=== PATIENT | female | born 1960 | race American Indian/Alaskan Native ===

== ENCOUNTER 2018-12-26 05:24 | Observation (INO) | payer MEDICAID ==
[2018-12-26] MEDS ORDERED: ASPIRIN PO ONE (05:41)
[2018-12-26 06:10] LABS: Eosinophils % (Auto) 0.2 % (0.0-4.3); Hematocrit 35.5 % (30.3-42.9); Lymphocytes # (Auto) 1.5 K/mm3 (1.2-5.4); Lymphocytes % (Auto) 30.8 % (13.4-35.0); Mean Corpuscular HGB Conc 34 % (30-34); Mean Corpuscular Volume 87 fl (79-97); Monocytes # (Auto) 0.4 K/mm3 (0.0-0.8); Platelet Count 381 K/mm3 (140-440); Red Blood Count 4.09 M/mm3 (3.65-5.03)
[2018-12-26 06:23] LABS: BUN/Creatinine Ratio 19; Blood Urea Nitrogen 15 mg/dL (7-17); Calcium 9.7 mg/dL (8.4-10.2); Hemolysis Index 21
--- NOTE | 2018-12-26 06:23 | XRay Report ---
CHEST 1 VIEW INDICATION / CLINICAL INFORMATION: Chest Pain. COMPARISON: None available. FINDINGS: SUPPORT DEVICES: None. HEART / MEDIASTINUM: No significant abnormality. LUNGS / PLEURA: No significant pulmonary or pleural abnormality. No pneumothorax. ADDITIONAL FINDINGS: No significant additional findings. IMPRESSION: 1. No acute findings. Signer Name: Ibrahima Daniel MD Signed: 12/26/2018 6:19 AM Workstation Name: [id number]
[2018-12-26] MEDS ORDERED: ASPIRIN ONE (07:59)
[2018-12-26] MEDS ORDERED: NITROSTAT SL PRN (08:04)
[2018-12-26] MEDS ORDERED: NITRO-BID 2% TP ONE (08:05)
[2018-12-26] MEDS ORDERED: MORPHINE IV ONE (08:05)
[2018-12-26] MEDS ORDERED: SODIUM CHLORIDE FLUSH SYRINGE 10 ML IV PRN ×2 (08:16→08:38)
[2018-12-26] MEDS ORDERED: TYLENOL PO PRN ×2 (08:16→08:39)
[2018-12-26] MEDS ORDERED: ZOFRAN IV PRN (08:16)
[2018-12-26] MEDS ORDERED: D50W (25GM) Syringe IV PRN (08:41)
--- NOTE | 2018-12-26 08:42 | History and Physical Report ---
History of Present Illness Date of examination: 12/26/18 Date of admission: 12/27/18 Chief complaint: Chest pain History of present illness: Pt is a 58-year-old female with PMHx of CVA, HTN, DM type2, CKD Colon Ca per pt currently undergoing chemotherapy, presents with complaints of chest pain, generalized malesie, nausea with no associated vomiting. Per patient she started having chest pain this am and had started chemotherapy 12/23/18. The pain is intermittent, pressure like sensation, 4/10 with no associated radiation or shortness of breath. She was such a poor historian and could not provide any further information or accurate list of her medications. I spoke to the daughter over the phone who wanted me to call her Oncologist to report that she may be having reaction to the chemotherapy medications. She could not inform me of the name of the chemotherapy agent. Review of last admission showed that the patient could not complete a stress test and was recommended to have cardiac cath but opted to have it done outpt. Past History Past Medical History: cancer, diabetes, hyperthyroidism, hypertension, hyperlipidemia Past Surgical History: bowel surgery Social history: no significant social history Family history: diabetes Medications and Allergies Allergies Allergy/AdvReac Type Severity Reaction Status Date / Time No Known Allergies Allergy Unverified 12/26/18 05:40 Home Medications Medication Instructions Recorded Confirmed Last Taken Type Aspirin 81 mg PO DAILY 12/26/18 12/26/18 Unknown History AtorvaSTATin 40 mg PO DAILY 12/26/18 12/26/18 Unknown History Capecitabine [Xeloda] 500 mg PO BID 12/26/18 12/26/18 12/26/18 21:00 History Gabapentin 300 mg PO BID 12/26/18 12/26/18 Unknown History NovoLIN 70/30 10 units SUB-Q HS 12/26/18 12/26/18 Unknown History NovoLIN 70/30 15 unit SUB-Q DAILY 12/26/18 12/26/18 Unknown History Protonix 40 mg PO DAILY 12/26/18 12/26/18 Unknown History amLODIPine 5 mg PO DAILY 12/26/18 12/26/18 Unknown History metFORMIN 750 mg PO BID 12/26/18 12/26/18 Unknown History Active Meds: Active Medications Acetaminophen (Tylenol) 650 mg PO Q4H PRN PRN Reason: Pain MILD(1-3)/Fever >100.5/ANDRE Nitroglycerin (Nitrostat) 0.4 mg SL .Q5MIN PRN PRN Reason: Chest Pain Ondansetron HCl (Zofran) 4 mg IV Q8H PRN PRN Reason: Nausea And Vomiting Sodium Chloride (Sodium Chloride Flush Syringe 10 Ml) 10 ml IV BID [place]IA Sodium Chloride (Sodium Chloride Flush Syringe 10 Ml) 10 ml IV PRN PRN PRN Reason: LINE FLUSH Review of Systems All systems: negative Constitutional: anorexia, fatigue, weakness, malaise, lethargy, no weight loss, no weight gain, no fever, no chills, no sweats, no night sweats Cardiovascular: chest pain, no orthopnea, no palpitations, no rapid/irregular heart beat, no edema, no syncope, no lightheadedness, no shortness of breath, no dyspnea on exertion, no paroxysmal nocturnal dyspnea, no phlebitis, no leg edema Respiratory: no cough, no excessive sputum, no hemoptysis, no dyspnea on exertion, no pleurisy Gastrointestinal: nausea, no abdominal pain, no vomiting, no diarrhea, no const ipation, no change in bowel habits, no loss of appetite, no early satiety Musculoskeletal: no neck stiffness, no shooting arm pain, no low back pain, no shooting leg pain, no leg numbness/tingling, no morning stiffness, no muscle weakness, no muscle cramps, no myalgias, no frequent falls Integumentary: no pruritis, no sores, no wounds, no jaundice, no growths, no lesions, no depigmentation, no acne, no brittle nails, no foot/leg ulcers Neurological: no weakness, no tingling, no seizures, no headaches, no migraines, no convulsions, no change in speech, no change in mentation, no gait dysfunction, no double vision, no hearing difficulties Psychiatric: no memory loss, no insomnia, no hypersomnia, no change in libido, no hopelessness, no anxiety attacks, no confusion, no irritability Endocrine: no heat intolerance, no polyphagia, no polydipsia, no polyuria, no deepening of the voice, no palpatations, no low blood sugars, no fatigue Exam - Constitutional Vitals: Temp Pulse Resp BP Pulse Ox 97.9 F 72 16 140/83 100 12/26/18 05:35 12/26/18 08:14 12/26/18 08:14 12/26/18 08:15 12/26/18 08:14 General appearance: Present: mild distress, well-nourished - EENT Eyes: Present: PERRL, EOM intact ENT: hearing intact, clear oral mucosa, dentition normal - Neck Neck: Present: supple, normal ROM - Respiratory Respiratory effort: normal Respiratory: bilateral: CTA - Cardiovascular Rhythm: regular Heart Sounds: Present: S1 & S2. Absent: systolic murmur - Extremities Extremities: no ischemia, pulses intact, pulses symmetrical, No edema, normal temperature, normal color, Full ROM Peripheral Pulses: within normal limits - Abdominal General gastrointestinal: Present: soft, non-tender, non-distended, normal bowel sounds Female genitourinary: Present: deferred - Integumentary Integumentary: Present: clear, warm, dry - Musculoskeletal Musculoskeletal: strength equal bilaterally - Psychiatric Psychiatric: appropriate mood/affect, intact judgment & insight, memory intact, cooperative - Neurologic Neurologic: CNII-XII intact, moves all extremities - Allied Health Allied health notes reviewed: nursing Results - Labs CBC & Chem 7: 12/26/18 08:51 12/26/18 08:51 Labs: Laboratory Last Values WBC 4.7 K/mm3 (4.5-11.0) 12/26/18 05:49 RBC 4.09 M/mm3 (3.65-5.03) 12/26/18 05:49 Hgb 12.0 gm/dl (10.1-14.3) 12/26/18 05:49 Hct 35.5 % (30.3-42.9) 12/26/18 05:49 MCV 87 fl (79-97) 12/26/18 05:49 MCH 30 pg (28-32) 12/26/18 05:49 MCHC 34 % (30-34) 12/26/18 05:49 RDW 15.0 % (13.2-15.2) 12/26/18 05:49 Plt Count 381 K/mm3 (140-440) 12/26/18 05:49 Lymph % (Auto) 30.8 % (13.4-35.0) 12/26/18 05:49 [facility] % (Auto) 8.0 % (0.0-7.3) H 12/26/18 05:49 Eos % (Auto) 0.2 % (0.0-4.3) 12/26/18 05:49 Baso % (Auto) 1.0 % (0.0-1.8) 12/26/18 05:49 Lymph # 1.5 K/mm3 (1.2-5.4) 12/26/18 05:49 [facility] # 0.4 K/mm3 (0.0-0.8) 12/26/18 05:49 Eos # 0.0 K/mm3 (0.0-0.4) 12/26/18 05:49 Baso # 0.0 K/mm3 (0.0-0.1) 12/26/18 05:49 Seg Neutrophils % 60.0 % (40.0-70.0) 12/26/18 05:49 Seg Neutrophils # 2.9 K/mm3 (1.8-7.7) 12/26/18 05:49 207.49 ng/mlDDU (0-234) 12/26/18 06:53 Sodium 133 mmol/L (137-145) L 12/26/18 05:52 Potassium 3.3 mmol/L (3.6-5.0) L 12/26/18 05:52 Chloride 95.8 mmol/L (98-107) L 12/26/18 05:52 Carbon Dioxide 22 mmol/L (22-30) 12/26/18 05:52 19 mmol/L 12/26/18 05:52 BUN 15 mg/dL (7-17) 12/26/18 05:52 0.8 mg/dL (0.7-1.2) 12/26/18 05:52 Estimated GFR > 60 ml/min 12/26/18 05:52 19 % 12/26/18 05:52 Glucose 316 mg/dL (65-100) H 12/26/18 05:52 Calcium 9.7 mg/dL (8.4-10.2) 12/26/18 05:52 < 0.010 ng/mL (0.00-0.029) 12/26/18 06:56 Assessment and Plan Assessment and plan: Pt is a 58-year-old female with PMHx of CVA, HTN, DM type2, CKD Colon Ca per pt currently undergoing chemotherapy, presents with complaints of chest pain, generalized malesie, nausea with no associated vomiting. Per patient she started having chest pain this am and had started chemotherapy 12/23/18. The pain is intermittent, pressure like sensation, 4/10 with no associated radiation or shortness of breath. She was such a poor historian and could not provide any further information or accurate list of her medications. I spoke to the daughter over the phone who wanted me to call her Oncologist to report that she may be having reaction to the chemotherapy medications. She could not inform me of the name of the chemotherapy agent. Review of last admission showed that the patient could not complete a stress test and was recommended to have cardiac cath but opted to have it done outpt. Atypical chest pain Gastroentritis related to chemotherapy DM with hyperglycemia Dyslipidemia Colon cancer currently undergoing chemotherapy plan Admit to tele cardiology consult obtain records from cancer doctor resume home meds [facility] patients medical records. Difficult historian No family PRESENT DVT/GI PROPHY Advance Directives: Yes Plan of care discussed with patient/family: Yes
[2018-12-26] MEDS ORDERED: NACL 0.9% 1000 ML 1,000 ML IV ONE (08:55)
[2018-12-26 09:05] LABS: Basophils % (Auto) 0.8 % (0.0-1.8); Eosinophils % (Auto) 0.1 % (0.0-4.3); Hemoglobin 11.9 gm/dl (10.1-14.3); Lymphocytes # (Auto) 1.7 K/mm3 (1.2-5.4); Lymphocytes % (Auto) 32.8 % (13.4-35.0); Mean Corpuscular HGB Conc 34 % (30-34); Mean Corpuscular Volume 87 fl (79-97); Monocytes # (Auto) 0.3 K/mm3 (0.0-0.8); Monocytes % (Auto) 6.8 % (0.0-7.3); Platelet Count 373 K/mm3 (140-440); Red Blood Count 4.03 M/mm3 (3.65-5.03); Red Cell Distribution Width 14.8 % (13.2-15.2)
[2018-12-26 09:27] LABS: BUN/Creatinine Ratio 19; Blood Urea Nitrogen 15 mg/dL (7-17); Calcium 10.1 mg/dL (8.4-10.2); Hemolysis Index 2
[2018-12-26 09:29] LABS: LDL Cholesterol,Direct 184 mg/dL (50-130)
[2018-12-26] MEDS ORDERED: NORVASC PO SCH (10:00)
[2018-12-26] MEDS ORDERED: NON-FORMULARY (Aspirin 81 MG) PO SCH (10:00)
[2018-12-26] MEDS ORDERED: PROTONIX PO SCH (10:00)
[2018-12-26 10:19] LABS: Chol/HDL Ratio 6.27 %; HDL Cholesterol 37 mg/dL (40-59)
[2018-12-26] MEDS ORDERED: NORVASC ONE (10:19)
[2018-12-26] MEDS ORDERED: NEURONTIN ONE (10:19)
[2018-12-26] MEDS ORDERED: PROTONIX PO ONE (10:19)
[2018-12-26] MEDS: SODIUM CHLORIDE FLUSH SYRINGE 10 ML IV SCH ×2 (10:20→22:30)
[2018-12-26] MEDS: NEURONTIN PO SCH ×2 (10:20→22:30)
[2018-12-26] MEDS: NACL 0.9% 1000 ML 1,000 ML IV SCH ×2 (10:21→17:02)
--- NOTE | 2018-12-26 10:30 | Emergency Department Report ---
ED Chest Pain HPI - General Chief Complaint: Chest Pain Stated Complaint: CHEST PAIN Time Seen by Provider: 12/26/18 06:39 Source: patient, EMS Mode of arrival: Stretcher Limitations: No Limitations - History of Present Illness MD Complaint: chest pain -: hour(s) Onset: during rest Pain Location: substernal Pain Radiation: none Severity: mild Severity scale (0 -10): 2 Quality: aching Consistency: intermittent Improves With: nothing Worsens With: nothing Context: other (history intestinal cancer) re: denies: nausea, vomting, diaphoresis, dyspnea, sense of impending doom Other Symptoms: denies: cough, fever, syncope, rash, acid taste in mouth, leg swelling, palpitations, burping - Related Data Home Medications Medication Instructions Recorded Confirmed Last Taken Aspirin 81 mg PO DAILY 12/26/18 12/26/18 Unknown AtorvaSTATin 40 mg PO DAILY 12/26/18 12/26/18 Unknown Gabapentin 300 mg PO BID 12/26/18 12/26/18 Unknown NovoLIN 70/30 10 units SUB-Q HS 12/26/18 12/26/18 Unknown NovoLIN 70/30 15 unit SUB-Q DAILY 12/26/18 12/26/18 Unknown Protonix 40 mg PO DAILY 12/26/18 12/26/18 Unknown amLODIPine 5 mg PO DAILY 12/26/18 12/26/18 Unknown metFORMIN 750 mg PO BID 12/26/18 12/26/18 Unknown Allergies Allergy/AdvReac Type Severity Reaction Status Date / Time No Known Allergies Allergy Unverified 12/26/18 05:40 Heart Score - HEART Score History: Moderately suspicious EKG: Non-specific Age: 45-65 Risk factors: 1-2 risk factors Troponin: < normal limit HEART Score: 4 ED Review of Systems ROS: Stated complaint: CHEST PAIN Other details as noted in HPI Other: GENERAL: No weight change, fatigue, weakness, fever, chills, or night sweats SKIN: No changes in skin or hair, no itching, no rashes, no jaundice HEAD: No trauma, headache, or visual changes EYES: No blurriness, tearing, itching, acute visual loss, conjunctival discoloration, or scleral icterus EARS: No hearing loss, tinnitus, vertigo, or earache NOSE: No rhinorrhea, stuffiness, sneezing, itching, or epistaxis MOUTH: No bleeding gums, hoarseness, sore throat, or swelling CARDIAC: Chest pain. No new murmur, palpitations, dyspnea on exertion, orthopnea, PND, or edema RESPIRATORY: No shortness of breath, wheeze, cough, sputum production, hemoptysis, pneumonia, asthma, bronchitis, or emphysema GI: No change in appetite, nausea, vomiting, dysphagia, change in bowel frequency, diarrhea, constipation, bleeding, hematemesis, melena, hematochezia, or abdominal pain URINARY: No frequency, urgency, polyuria, dysuria, hematuria, or incontinence GENITAL: Male: No penile discharge, testicular pain, testicular masses, or hernia Female: No change in menstrual regularity, no frequency or dysmenorrhea MUSCULOSKELETAL: No muscle weakness, joint stiffness, decrease in range of motion, redness, swelling NEUROLOGIC: No loss of sensation, numbness, tingling, tremors, weakness, paralysis, seizures HEMATOLOGIC: No anemia, easy bruising, bleeding, petechiae, or purpura ENDOCRINE: No hot or cold intolerance, sweating, polyuria, polydipsia or, polyphagia no thyroid problems PSYCHIATRIC: No change in mood, no anxiety, no depression ED Past Medical Hx - Past Medical History Previous Medical History?: Yes Hx Hypertension: Yes Hx Diabetes: Yes Additional medical history: Colon Ca - Surgical History Past Surgical History?: Yes Additional Surgical History: C section, Carpal Tunnel Surgery - Social History Smoking Status: Never Smoker Substance Use Type: None - Medications Home Medications: Home Medications Medication Instructions Recorded Confirmed Last Taken Type Aspirin 81 mg PO DAILY 12/26/18 12/26/18 Unknown History AtorvaSTATin 40 mg PO DAILY 12/26/18 12/26/18 Unknown History Gabapentin 300 mg PO BID 12/26/18 12/26/18 Unknown History NovoLIN 70/30 10 units SUB-Q HS 12/26/18 12/26/18 Unknown History NovoLIN 70/30 15 unit SUB-Q DAILY 12/26/18 12/26/18 Unknown History Protonix 40 mg PO DAILY 12/26/18 12/26/18 Unknown History amLODIPine 5 mg PO DAILY 12/26/18 12/26/18 Unknown History metFORMIN 750 mg PO BID 12/26/18 12/26/18 Unknown History ED Physical Exam - General Limitations: No Limitations - Other Other exam information: GENERAL: Patient in no acute distress HEAD: Normocephalic, atraumatic EYES: PERRLA, EOM intact, no scleral icterus, no papilledema, no conjunctival hemorrhage, visual riley and acuity wnl, EARS: No tenderness, discharge, tympanic membrane wnl NOSE: No tenderness, discharge, sinus tenderness MOUTH: No erythema, bleeding, exudate HEART: Regular rate and rhythm, no murmur, S1-S2 are auscultated, pulses are symmetric LUNGS: No wheezing, rales, rhonchi, bilateral breath sounds ABDOMEN: Normal bowel sounds, no tenderness, no rebound, no guarding, no masses, no CVA tenderness GENITOURINARY: Male: No rashes, ulcers, discharge, no scrotal masses, no hernia Female: External genitalia wnl. Cervix shows no discharge, bleeding, internal os closed. No adnexal tenderness, or mass MUSCULOSKELETAL: Normal joint range of motion, no redness, no swelling, no tenderness NEUROLOGIC: GCS 15, Alert and Oriented x3, Cranial nerves intact, normal sensation, normal strength, normal gait, no cerebellar deficit PSYCHIATRIC: No homicidal or suicidal ideation, no anxiety, no depression, no hallucinations SKIN: Skin is warm and dry, no wounds, no rashes ED Course Vital Signs 12/26/18 12/26/18 12/26/18 05:35 05:41 05:51 Temperature 97.9 F Pulse Rate 86 84 84 Respiratory 23 14 24 Rate Blood Pressure 106/66 106/66 106/65 Blood Pressure 106/66 [Right] O2 Sat by Pulse 100 99 100 Oximetry 12/26/18 12/26/18 12/26/18 06:00 06:11 06:21 Temperature Pulse Rate 81 81 84 Respiratory 17 18 20 Rate Blood Pressure 108/66 108/66 104/64 Blood Pressure [Right] O2 Sat by Pulse 99 99 99 Oximetry 12/26/18 12/26/18 12/26/18 06:30 06:41 06:51 Temperature Pulse Rate 82 82 78 Respiratory 18 19 16 Rate Blood Pressure 105/66 105/66 96/58 Blood Pressure [Right] O2 Sat by Pulse 100 99 98 Oximetry 12/26/18 12/26/18 12/26/18 07:00 07:11 07:21 Temperature Pulse Rate 77 74 74 Respiratory 19 12 19 Rate Blood Pressure 119/68 119/68 123/76 Blood Pressure [Right] O2 Sat by Pulse 99 99 99 Oximetry 12/26/18 12/26/18 12/26/18 07:30 07:51 08:01 Temperature Pulse Rate 77 78 Respiratory 10 L 13 Rate Blood Pressure 115/92 115/92 140/83 Blood Pressure [Right] O2 Sat by Pulse 100 98 100 Oximetry 12/26/18 12/26/18 12/26/18 08:11 08:14 08:15 Temperature Pulse Rate 73 72 Respiratory 15 16 Rate Blood Pressure 140/83 140/83 Blood Pressure 140/83 [Right] O2 Sat by Pulse 99 100 Oximetry 12/26/18 12/26/18 12/26/18 08:21 08:30 08:41 Temperature Pulse Rate 68 70 73 Respiratory 12 19 11 L Rate Blood Pressure 137/88 132/85 132/85 Blood Pressure [Right] O2 Sat by Pulse 100 99 99 Oximetry 12/26/18 12/26/18 12/26/18 08:51 09:00 09:11 Temperature Pulse Rate 67 74 70 Respiratory 18 13 12 Rate Blood Pressure 95/69 121/84 121/84 Blood Pressure [Right] O2 Sat by Pulse 98 98 99 Oximetry 12/26/18 12/26/18 12/26/18 09:21 09:30 09:41 Temperature Pulse Rate 77 74 68 Respiratory 13 12 16 Rate Blood Pressure 108/73 124/85 124/85 Blood Pressure [Right] O2 Sat by Pulse 96 98 99 Oximetry 12/26/18 12/26/18 12/26/18 09:51 10:00 10:11 Temperature Pulse Rate 74 71 76 Respiratory 16 17 17 Rate Blood Pressure 113/77 122/75 113/77 Blood Pressure [Right] O2 Sat by Pulse 98 98 98 Oximetry ED Medical Decision Making - Lab Data Result diagrams: 12/26/18 08:51 12/26/18 08:51 Laboratory Results - last 24 hr 12/26/18 12/26/18 12/26/18 05:49 05:52 06:53 WBC 4.7 RBC 4.09 Hgb 12.0 Hct 35.5 MCV 87 MCH 30 MCHC 34 RDW 15.0 Plt Count 381 Lymph % (Auto) 30.8 [place] % (Auto) 8.0 H Eos % (Auto) 0.2 Baso % (Auto) 1.0 Lymph # 1.5 [place] # 0.4 Eos # 0.0 Baso # 0.0 Seg Neutrophils % 60.0 Seg Neutrophils # 2.9 D-Dimer 207.49 Sodium 133 L Potassium 3.3 L Chloride 95.8 L Carbon Dioxide 22 Anion Gap 19 BUN 15 Creatinine 0.8 Estimated GFR > 60 BUN/Creatinine Ratio 19 Glucose 316 H Hemoglobin A1c Calcium 9.7 Troponin T < 0.010 Triglycerides Cholesterol LDL Cholesterol Direct HDL Cholesterol Cholesterol/HDL Ratio 12/26/18 12/26/18 12/26/18 06:56 08:51 08:51 WBC 5.1 RBC 4.03 Hgb 11.9 Hct 35.0 MCV 87 MCH 30 MCHC 34 RDW 14.8 Plt Count 373 Lymph % (Auto) 32.8 [place] % (Auto) 6.8 Eos % (Auto) 0.1 Baso % (Auto) 0.8 Lymph # 1.7 [place] # 0.3 Eos # 0.0 Baso # 0.0 Seg Neutrophils % 59.5 Seg Neutrophils # 3.0 D-Dimer Sodium Potassium Chloride Carbon Dioxide Anion Gap BUN Creatinine Estimated GFR BUN/Creatinine Ratio Glucose Hemoglobin A1c Calcium Troponin T < 0.010 < 0.010 Triglycerides 122 Cholesterol 232 H LDL Cholesterol Direct 184 H HDL Cholesterol 37 L Cholesterol/HDL Ratio 6.27 12/26/18 12/26/18 08:51 08:51 WBC RBC Hgb Hct MCV MCH MCHC RDW Plt Count Lymph % (Auto) [place] % (Auto) Eos % (Auto) Baso % (Auto) Lymph # [place] # Eos # Baso # Seg Neutrophils % Seg Neutrophils # D-Dimer Sodium 134 L Potassium 3.6 Chloride 94.9 L Carbon Dioxide 25 Anion Gap 18 BUN 15 Creatinine 0.8 Estimated GFR > 60 BUN/Creatinine Ratio 19 Glucose 316 H Hemoglobin A1c 9.3 H Calcium 10.1 Troponin T Triglycerides Cholesterol LDL Cholesterol Direct HDL Cholesterol Cholesterol/HDL Ratio - EKG Data When compared to previous EKG there are: no significant change - Radiology Data Radiology results: report reviewed - Medical Decision Making Patient comfortable. Plan admit for further evaluation. Hospitalist updated and accepts admission. Critical care attestation.: If time is entered above; I have spent that time in minutes in the direct care of this critically ill patient, excluding procedure time. ED Disposition Clinical Impression: Chest pain Qualifiers: Chest pain type: unspecified Qualified Code(s): R07.9 - Chest pain, unspecified Disposition: DC-09 OP ADMIT IP TO THIS HOSP Is pt being admited?: Yes Condition: Stable
--- NOTE | 2018-12-26 10:47 | Consultation ---
History of Present Illness Consult date: 12/26/18 Consult reason: chest pain History of present illness: 58 YO woman with h/o colon CA currently on Xeloda, htn, and DM who presnted to ED with chest pain in her left chest and epigstric region. She reports associated nausea and dyspnea. She had recently been evaluated by Dr Thapa due to intermittent chest pain. Previous stress echo was apparently inconclusive and plan had been to pursue MPI if she had further chest pain. LA has been ruled out with negative serial cardiac enzymes. ECG reveals sinus rhythm and is otherwise unremarkable. Past History Past Medical History: cancer (colon), diabetes, hypertension Social history: smoking Family history: hypertension Medications and Allergies Allergies Allergy/AdvReac Type Severity Reaction Status Date / Time No Known Allergies Allergy Unverified 12/26/18 05:40 Home Medications Medication Instructions Recorded Confirmed Last Taken Type Aspirin 81 mg PO DAILY 12/26/18 12/26/18 Unknown History AtorvaSTATin 40 mg PO DAILY 12/26/18 12/26/18 Unknown History Gabapentin 300 mg PO BID 12/26/18 12/26/18 Unknown History NovoLIN 70/30 10 units SUB-Q HS 12/26/18 12/26/18 Unknown History NovoLIN 70/30 15 unit SUB-Q DAILY 12/26/18 12/26/18 Unknown History Protonix 40 mg PO DAILY 12/26/18 12/26/18 Unknown History amLODIPine 5 mg PO DAILY 12/26/18 12/26/18 Unknown History metFORMIN 750 mg PO BID 12/26/18 12/26/18 Unknown History Active Meds: Active Medications Acetaminophen (Tylenol) 650 mg PO Q4H PRN PRN Reason: Pain MILD(1-3)/Fever >100.5/ANDRE Amlodipine Besylate (Norvasc) 5 mg PO QDAY [facility] Last Admin: 12/26/18 10:20 Dose: 5 mg Documented by: Aspirin (Baby Aspirin) 81 mg PO QDAY [facility] Atorvastatin Calcium (Lipitor) 40 mg PO QHS [facility] Dextrose (D50w (25gm) Syringe) 50 ml IV PRN PRN PRN Reason: Hypoglycemia Gabapentin (Neurontin) 300 mg PO BID [facility] Last Admin: 12/26/18 10:20 Dose: 300 mg Documented by: Sodium Chloride (Nacl 0.9% 1000 Ml) 1,000 mls @ 75 mls/hr IV DIRECT [facility] Last Admin: 12/26/18 10:21 Dose: 75 mls/hr Documented by: Insulin Human Isoph/Insulin Regular (Humulin 70/30) 10 unit SUB-Q QHS [facility] Insulin Human Isoph/Insulin Regular (Humulin 70/30) 15 unit SUB-Q QAM [facility] Insulin Human Lispro (Humalog) 0 unit SUB-Q ACHS GLORIA; Protocol Morphine Sulfate (Morphine) 2 mg IV Q5MIN PRN PRN Reason: Chest Pain unrelieved by NTG Nitroglycerin (Nitrostat) 0.4 mg SL .Q5MIN PRN PRN Reason: Chest Pain Ondansetron HCl (Zofran) 4 mg IV Q8H PRN PRN Reason: Nausea And Vomiting Pantoprazole Sodium (Protonix) 40 mg PO DAILY [facility] Last Admin: 12/26/18 10:21 Dose: 40 mg Documented by: Sodium Chloride (Sodium Chloride Flush Syringe 10 Ml) 10 ml IV BID [facility] Last Admin: 12/26/18 10:20 Dose: 10 ml Documented by: Sodium Chloride (Sodium Chloride Flush Syringe 10 Ml) 10 ml IV PRN PRN PRN Reason: LINE FLUSH Sodium Chloride (Sodium Chloride Flush Syringe 10 Ml) 10 ml IV PRN PRN PRN Reason: LINE FLUSH Review of Systems All systems: negative (per hpi) Physical Examination Vital Signs Temp Pulse Resp BP Pulse Ox 97.9 F 85 23 106/66 100 12/26/18 05:35 12/26/18 05:35 12/26/18 05:35 12/26/18 05:35 12/26/18 05:35 General appearance: no acute distress Neck: Positive: neck supple Cardiac: Positive: Reg Rate and Rhythm. Negative: Audible Murmur Lungs: Positive: clear to auscultation Abdomen: Positive: Soft, Active Bowel Sounds Extremities: Absent: edema Results 12/26/18 08:51 12/26/18 08:51 Lipids 12/26/18 Range/Units 08:51 Triglycerides 122 (2-149) mg/dL Cholesterol 232 H (50-199) mg/dL HDL Cholesterol 37 L (40-59) mg/dL Cholesterol/HDL Ratio 6.27 % CBC 12/26/18 12/26/18 Range/Units 05:49 08:51 WBC 4.7 5.1 (4.5-11.0) K/mm3 RBC 4.09 4.03 (3.65-5.03) M/mm3 Hgb 12.0 11.9 (10.1-14.3) gm/dl Hct 35.5 35.0 (30.3-42.9) % Plt Count 381 373 (140-440) K/mm3 Lymph # 1.5 1.7 (1.2-5.4) K/mm3 [place] # 0.4 0.3 (0.0-0.8) K/mm3 Eos # 0.0 0.0 (0.0-0.4) K/mm3 Baso # 0.0 0.0 (0.0-0.1) K/mm3 Comprehensive Metabolic Panel 12/26/18 12/26/18 Range/Units 05:52 08:51 Sodium 133 L 134 L (137-145) mmol/L Potassium 3.3 L 3.6 (3.6-5.0) mmol/L Chloride 95.8 L 94.9 L (98-107) mmol/L Carbon Dioxide 22 25 (22-30) mmol/L BUN 15 15 (7-17) mg/dL Creatinine 0.8 0.8 (0.7-1.2) mg/dL Glucose 316 H 316 H (65-100) mg/dL Calcium 9.7 10.1 (8.4-10.2) mg/dL Assessment and Plan Recurrent atypical chest pain Colon CA currently on Xeloda Htn DM Recommend: Plan for MPI tomorrow morning
[2018-12-26] MEDS: HumaLOG SUB-Q SCH ×3 (13:00→22:30)
[2018-12-26] MEDS: MORPHINE IV PRN (19:29)
[2018-12-26] MEDS ORDERED: AMBIEN PO PRN (21:38)
[2018-12-27] MEDS: MORPHINE IV PRN (02:23)
[2018-12-27] MEDS: NACL 0.9% 1000 ML 1,000 ML IV SCH (02:23)
[2018-12-27 04:37] VITALS: BP 116/70
[2018-12-27] MEDS ORDERED: LEXISCAN IV ONE ×2 (07:15→07:27)
--- NOTE | 2018-12-27 09:21 | Discharge Summary ---
Providers - Providers Date of Admission: 12/26/18 09:21 Attending physician: NESTOR KEMP MD 12/26/18 Consult to Cardiac Rehabilitation [CONS] Routine Reason For Exam: Phase I 12/26/18 08:50 Consult to Physician [CONS] Routine Comment: COMPLETED - GAYLA Consulting Provider: JAGDEEP YADAV Physician Instructions: Reason For Exam: chest pain [facility] Reason for admission: chest pain Condition: Stable Hospital course: Pt is a 58-year-old female with PMHx of CVA, HTN, DM type2, CKD Colon Ca per pt currently undergoing chemotherapy, presents with complaints of chest pain, generalized malesie, nausea with no associated vomiting. Per patient she started having chest pain this am and had started chemotherapy 12/23/18. The pain is intermittent, pressure like sensation, 4/10 with no associated radiation or shortness of breath. She was such a poor historian and could not provide any further information or accurate list of her medications. I spoke to the daughter over the phone who wanted me to call her Oncologist to report that she may be having reaction to the chemotherapy medications. She could not inform me of the name of the chemotherapy agent. Review of last admission showed that the patient could not complete a stress test and was recommended to have cardiac cath but opted to have it done outpt. Patient was admitted for management of chest pain and chemotherapy related diagnosis but unfortunately signed out AMA prior to my evaluation today. Atypical chest pain likely secondary to GERD Gastroentritis related to chemotherapy DM with hyperglycemia Dyslipidemia Colon cancer currently undergoing chemotherapy Disposition: DC-07 LEFT AGAINST MED ADVICE Time spent for discharge: 35 mins Core Measure Documentation - Palliative Care Palliative Care/ Comfort Measures: Not Applicable - Core Measures Any of the following diagnoses?: none Exam - Constitutional Vitals: Temp Pulse Resp BP Pulse Ox 98.3 F 80 20 116/70 100 12/27/18 03:37 12/27/18 03:37 12/27/18 03:37 12/27/18 03:37 12/27/18 03:37 Plan Follow up with: SUSAN PACHECO MD [Primary Care Provider] - 7 Days Forms: AMA Form
[2018-12-27] MEDS ORDERED: XELODA PO SCH (10:00)
[2018-12-27] MEDS ORDERED: BABY ASPIRIN PO SCH (10:00)
== END 2018-12-27 08:27 | disposition left against medical advice (07) ==
LOC: ED 05:24 → 4A 09:21
PROVIDERS: ADMIT Internal Medicine; ATTEND Internal Medicine
DX: R07.89 Other chest pain (principal); C18.9 Malignant neoplasm of colon, unspecified; K52.9 Noninfective gastroenteritis and colitis, unspecified; E11.65 Type 2 diabetes mellitus with hyperglycemia; E78.5 Hyperlipidemia, unspecified; I12.9 Hypertensive chronic kidney disease with stage 1 through stage 4 chronic kidney disease, or unspecified chronic kidney disease; E11.22 Type 2 diabetes mellitus with diabetic chronic kidney disease; N18.9 Chronic kidney disease, unspecified; F17.200 Nicotine dependence, unspecified, uncomplicated; Z79.82 Long term (current) use of aspirin; Z79.899 Other long term (current) drug therapy; E05.90 Thyrotoxicosis, unspecified without thyrotoxic crisis or storm; Z98.890 Other specified postprocedural states
CPT/HCPCS: 36415; 71045; 80048; 80061; 82962; 83036; 84484; 85025; 85379; 93005; 93010; 96361; 96372; 96374; 96375; 96376; 99284; A9270; G0378; J2270; J2405; J2785; J7030; J1815

== ENCOUNTER 2020-07-04 12:07 | Emergency (ER) | payer MEDICAID ==
[2020-07-04 12:17] VITALS: BP 141/85
[2020-07-04] MEDS ORDERED: methylPREDNISolone ACETATE 80 MG/1 ML INJ IM ONE (12:19)
--- NOTE | 2020-07-04 12:19 | Emergency Department Report ---
ED Extremity Problem HPI - General Chief complaint: Extremity Injury, Upper Stated complaint: LEFT ARM PAIN Time Seen by Provider: 07/04/20 12:15 Source: patient Mode of arrival: Ambulatory Limitations: No Limitations - History of Present Illness Initial comments: 1 m hx lue pain at the shoulder joint- worse when lifting arm against gravity no cp no sob did not see pcp no fever or chills pain worse with movement no fall or trauma pt drove to ER and began moaning at triage window. radial and ulnar plus 2 pulses; rapid cap refill; full rom arm- fingers; wrist; elbow and shoulder; no swelling MD Complaint: extremity pain Location: left History of Same: Yes Improves with: nothing Worsens with: other (movement ) Associated Symptoms: denies other symptoms - Related Data Home Medications Medication Instructions Recorded Confirmed Last Taken Aspirin 81 mg PO DAILY 12/26/18 12/26/18 Unknown AtorvaSTATin 40 mg PO DAILY 12/26/18 12/26/18 Unknown Capecitabine [Xeloda] 500 mg PO BID 12/26/18 12/26/18 12/26/18 21:00 Gabapentin 300 mg PO BID 12/26/18 12/26/18 Unknown NovoLIN 70/30 10 units SUB-Q HS 12/26/18 12/26/18 Unknown NovoLIN 70/30 15 unit SUB-Q DAILY 12/26/18 12/26/18 Unknown Protonix 40 mg PO DAILY 12/26/18 12/26/18 Unknown amLODIPine 5 mg PO DAILY 12/26/18 12/26/18 Unknown metFORMIN 750 mg PO BID 12/26/18 12/26/18 Unknown Previous Rx's Medication Instructions Recorded Last Taken Type Naproxen [Naprosyn] 500 mg PO BID PRN #20 tablet 07/04/20 Unknown Rx Allergies Allergy/AdvReac Type Severity Reaction Status Date / Time No Known Allergies Allergy Verified 07/04/20 12:10 ED Review of Systems ROS: Stated complaint: LEFT ARM PAIN Other details as noted in HPI Comment: All other systems reviewed and negative ED Past Medical Hx - Past Medical History Previous Medical History?: Yes Hx Hypertension: Yes Hx Congestive Heart Failure: No Hx Diabetes: Yes Hx Asthma: No Hx COPD: No Additional medical history: Colon Ca - Surgical History Past Surgical History?: Yes Additional Surgical History: C section, Carpal Tunnel Surgery - Family History Family history: no significant - Social History Smoking Status: Never Smoker Substance Use Type: None - Medications Home Medications: Home Medications Medication Instructions Recorded Confirmed Last Taken Type Aspirin 81 mg PO DAILY 12/26/18 12/26/18 Unknown History AtorvaSTATin 40 mg PO DAILY 12/26/18 12/26/18 Unknown History Capecitabine [Xeloda] 500 mg PO BID 12/26/18 12/26/18 12/26/18 21:00 History Gabapentin 300 mg PO BID 12/26/18 12/26/18 Unknown History NovoLIN 70/30 10 units SUB-Q HS 12/26/18 12/26/18 Unknown History NovoLIN 70/30 15 unit SUB-Q DAILY 12/26/18 12/26/18 Unknown History Protonix 40 mg PO DAILY 12/26/18 12/26/18 Unknown History amLODIPine 5 mg PO DAILY 12/26/18 12/26/18 Unknown History metFORMIN 750 mg PO BID 12/26/18 12/26/18 Unknown History Naproxen [Naprosyn] 500 mg PO BID PRN #20 tablet 07/04/20 Unknown Rx ED Physical Exam - General Limitations: No Limitations General appearance: alert, in no apparent distress - Head Head exam: Present: atraumatic, normocephalic - Eye Eye exam: Present: normal appearance - ENT ENT exam: Present: mucous membranes moist - Neck Neck exam: Present: normal inspection - Respiratory Respiratory exam: Present: normal lung sounds bilaterally. Absent: respiratory distress - Cardiovascular Cardiovascular Exam: Present: regular rate, normal rhythm. Absent: systolic murmur, diastolic murmur, rubs, gallop - GI/Abdominal GI/Abdominal exam: Present: soft, normal bowel sounds - Extremities Exam Extremities exam: Present: normal inspection - Back Exam Back exam: Present: normal inspection - Neurological Exam Neurological exam: Present: alert, oriented X3 - Psychiatric Psychiatric exam: Present: normal affect, normal mood - Skin Skin exam: Present: warm, dry, intact, normal color. Absent: rash ED Course Vital Signs 07/04/20 12:15 Temperature 98.2 F Pulse Rate 65 Respiratory 20 Rate Blood Pressure 141/85 O2 Sat by Pulse 100 Oximetry ED Medical Decision Making - Radiology Data Radiology results: report reviewed, image reviewed - Medical Decision Making nap on xray pt is taking home meds per routine medicated in er dc home with pcp follow up pt verbalizes understanding of dc poc Vital Signs (72 hours) 07/04/20 12:15 Temperature 98.2 F Pulse Rate 65 Respiratory 20 Rate Blood Pressure 141/85 O2 Sat by Pulse 100 Oximetry - Differential Diagnosis ro fx Critical care attestation.: If time is entered above; I have spent that time in minutes in the direct care of this critically ill patient, excluding procedure time. ED Disposition Clinical Impression: Musculoskeletal arm pain, Arthritis Disposition: - TO HOME OR SELFCARE Is pt being admited?: No Does the pt Need Aspirin: No Condition: Stable Instructions: Shoulder Pain Additional Instructions: med as ordered today follow up with pcp in 48 hours to be sure you are getting better referral below continue home meds Prescriptions: Naproxen [Naprosyn] 500 mg PO BID PRN #20 tablet PRN Reason: Pain Referrals: PRIMARY CAREMD [Primary Care Provider] - 3-5 Days PRABHAKAR FIGUEROA MD [Staff Physician] - 3-5 Days Time of Disposition: 12:33
--- NOTE | 2020-07-04 12:50 | XRay Report ---
Left shoulder 4 views INDICATION: Pain FINDINGS: Mild glenohumeral and AC degenerative change. No acute fracture or dislocation. No soft tis salena abnormality. Signer Name: Daniele Disla MD Signed: 07/04/2020 12:46 PM Workstation Name: [id number]
== END 2020-07-04 13:27 | disposition home or self-care (01) ==
LOC: ED 12:07
DX: M79.602 Pain in left arm (principal); M19.90 Unspecified osteoarthritis, unspecified site; I10 Essential (primary) hypertension; E11.9 Type 2 diabetes mellitus without complications; Z98.890 Other specified postprocedural states; Z79.899 Other long term (current) drug therapy
CPT/HCPCS: 73030; 96372; 99283; J1040